=== PATIENT | female | born 1980 | race American Indian/Alaskan Native ===

== ENCOUNTER 2018-12-04 09:16 | Outpatient (CLI) | payer OTHER | END 2018-12-04 09:32 | disposition home or self-care (01) | LOC: NST 09:16 | DX: Z34.83 Encounter for supervision of other normal pregnancy, third trimester (principal) ==

== ENCOUNTER 2019-01-01 09:17 | Outpatient (CLI) | payer OTHER | END 2019-01-01 10:14 | disposition home or self-care (01) | LOC: NST 09:17 | DX: Z34.83 Encounter for supervision of other normal pregnancy, third trimester (principal) ==

== ENCOUNTER 2019-01-08 12:50 | Outpatient (CLI) | payer OTHER | END 2019-01-08 13:11 | disposition home or self-care (01) | LOC: NST 12:50 | DX: Z34.83 Encounter for supervision of other normal pregnancy, third trimester (principal) ==

== ENCOUNTER 2019-01-08 14:42 | Inpatient (IN) | payer OTHER ==
[~2019-01-08] VITALS: Ht 180.3 cm; Wt 3.2 kg
[2019-01-15] MEDS ORDERED: PRENATABS RX T1 EACH PO (10:27)
[2019-01-15] MEDS ORDERED: LABETALOL HCL100 MG PO (10:27)
[2019-01-15] MEDS ORDERED: PEPCID20 MG PO (10:27)
== END 2019-01-22 16:00 | disposition home or self-care (01) | DRG 788 ==
LOC: SURH 01-20 08:30 → OB/GYN 01-20 09:53 → O/R 01-20 09:53 → SURH 01-20 13:00 → OB/GYN 01-20 16:28
PROVIDERS: ADMIT Obstetrics & Gynecology Maternal & Fetal Medicine
PROC: 4A1HXCZ Monitoring of Products of Conception, Cardiac Rate, External Approach (ICD-10-PCS; 2019-01-20)
PROC: 10D00Z1 Extraction of Products of Conception, Low, Open Approach (ICD-10-PCS; principal; 2019-01-20 13:00)
DX: O82 Encounter for cesarean delivery without indication (principal); Z3A.38 38 weeks gestation of pregnancy; Z37.0 Single live birth